=== PATIENT | female | born 1985 | race Caucasian/White ===

== ENCOUNTER 2018-06-08 16:43 | Emergency (ER) | payer OTHER ==
[~2018-06-08] VITALS: Ht 160 cm; Wt 81.8 kg
[2018-06-08 16:49] VITALS: BP 138/71; PULSE 102; TEMP 98.8
[2018-06-08 17:17] LABS: COLLECTION METHOD CLEAN CATCH
[2018-06-08 17:22] LABS: MUCOUS Present /lpf; PH 5 (5-8); URINE APPEARANCE Clear; URINE BACTERIA Rare /hpf; URINE BILIRUBIN Negative (NEGATIVE); URINE BLOOD 2+ (NEGATIVE); URINE COLOR Yellow; URINE GLUCOSE Negative (NEGATIVE); URINE KETONE Negative (NEGATIVE); URINE LEUKOCYTE ESTERASE Negative (NEGATIVE); URINE NITRATE Negative (NEGATIVE); URINE PROTEIN(semi-quant) Negative (NEGATIVE); URINE RBC 0-2 /hpf; URINE UROBILINOGEN Negative (NEGATIVE)
[2018-06-08] MEDS ORDERED: FLEXERIL 1010 MG/TAB PO (18:00)
== END 2018-06-08 18:21 | disposition home or self-care (01) ==
LOC: COL.ER 16:43
PROVIDERS: Nurse Practitioner
DX: S39.012A Strain of muscle, fascia and tendon of lower back, initial encounter (principal); F17.210 Nicotine dependence, cigarettes, uncomplicated; Z96.22 Myringotomy tube(s) status; X50.0XXA Overexertion from strenuous movement or load, initial encounter
CPT/HCPCS: J2360